=== PATIENT | female | born 1985 | race African-American/Black ===

== ENCOUNTER 2017-12-04 09:37 | Emergency (ER) | payer OTHER, MEDICAID ==
[~2017-12-04] VITALS: Ht 162.6 cm; Wt 91.6 kg
[~2017-12-04 09:37] MED LIST: BIRTH CONTROL; KEFLEX500 MG PO; NORCO 5-325 TA1 EACH PO
[2017-12-04] MEDS ORDERED: TRIAMCINOLONE A80 G2 TOP (09:46)
[2017-12-04] MEDS ORDERED: KEFLEX500 M1 PO (10:18)
[2017-12-04 10:39] VITALS: BP 155/99
== END 2017-12-04 10:40 | disposition home or self-care (01) ==
LOC: M.ERS 09:37
DX: L02.01 Cutaneous abscess of face (principal); Z91.040 Latex allergy status

== ENCOUNTER 2018-11-21 09:07 | Emergency (ER) | payer BC, OTHER, MEDICAID ==
[~2018-11-21] VITALS: Ht 162.6 cm; Wt 90.7 kg
[~2018-11-21 09:07] MED LIST changes: +KEFLEX500 M1 PO; +TRIAMCINOLONE A80 G2 TOP
[2018-11-21] MEDS ORDERED: IBUPROFEN 800800 MG PO (09:35)
[2018-11-21] MEDS ORDERED: Magic Mouthwash SW&SWALLOW (09:35)
== END 2018-11-21 09:56 | disposition home or self-care (01) ==
LOC: M.ERS 09:07
DX: J02.8 Acute pharyngitis due to other specified organisms (principal); B97.89 Other viral agents as the cause of diseases classified elsewhere; Z91.040 Latex allergy status

== ENCOUNTER 2019-01-04 08:18 | Emergency (ER) | payer BC, OTHER, MEDICAID ==
[~2019-01-04] VITALS: Ht 165.1 cm; Wt 90.7 kg
[~2019-01-04 08:18] MED LIST changes: +IBUPROFEN 800800 MG PO; +Magic Mouthwash SW&SWALLOW
[2019-01-04] MEDS ORDERED: TORADOL 10 MG T10 MG PO (08:42)
[2019-01-04 09:02] VITALS: BP 141/73
== END 2019-01-04 09:03 | disposition home or self-care (01) ==
LOC: M.ERS 08:18
DX: S86.812A Strain of other muscle(s) and tendon(s) at lower leg level, left leg, initial encounter (principal); Z91.040 Latex allergy status; X50.1XXA Overexertion from prolonged static or awkward postures, initial encounter; Y92.89 Other specified places as the place of occurrence of the external cause; Y93.89 Activity, other specified; Y99.8 Other external cause status

== ENCOUNTER 2019-07-20 10:46 | Emergency (ER) | payer BC, OTHER, MEDICAID ==
[~2019-07-20] VITALS: Ht 162.6 cm; Wt 90.7 kg
[~2019-07-20 10:46] MED LIST changes: +TORADOL 10 MG T10 MG PO
[2019-07-20 11:03] VITALS: BP 161/123
[2019-07-20] MEDS ORDERED: HEATHER0.35 MG PO (11:05)
[2019-07-20 11:30] LABS: INFLUENZA A ANTIGEN Negative (Negative)
[2019-07-20] MEDS ORDERED: TYLENOL WITH CO1 TA1 PO (12:23)
[2019-07-20] MEDS ORDERED: NASACORT10.8 ML NARES (12:23)
[2019-07-20] MEDS ORDERED: LORATIDINE 10 M10 M1 PO (12:23)
[2019-07-20] MEDS ORDERED: MEDROLDOSEPACK PO (12:23)
== END 2019-07-20 12:30 | disposition home or self-care (01) ==
LOC: M.ERS 10:46
PROVIDERS: Emergency Medicine
DX: J10.1 Influenza due to other identified influenza virus with other respiratory manifestations (principal); Z91.040 Latex allergy status

== ENCOUNTER 2020-03-01 06:12 | Emergency (ER) | payer BC ==
[~2020-03-01] VITALS: Ht 162.6 cm; Wt 93.9 kg
[~2020-03-01 06:12] MED LIST changes: +HEATHER0.35 MG PO; +LORATIDINE 10 M10 M1 PO; +MEDROLDOSEPACK PO; +NASACORT10.8 ML NARES; +TYLENOL WITH CO1 TA1 PO
[2020-03-01 06:51] VITALS: BP 154/91
== END 2020-03-01 06:51 | disposition home or self-care (01) ==
LOC: M.ERS 06:12
DX: H61.21 Impacted cerumen, right ear (principal); Z91.040 Latex allergy status

== ENCOUNTER 2021-01-30 11:38 | Emergency (ER) | payer BC ==
[~2021-01-30] VITALS: Ht 167.6 cm; Wt 91.2 kg
[2021-01-30 11:54] VITALS: BP 159/107
[2021-01-30] MEDS ORDERED: BIRTH CONTROL (11:56)
== END 2021-01-30 15:49 | disposition home or self-care (01) ==
LOC: M.ERS 11:38
DX: H61.21 Impacted cerumen, right ear (principal); Z91.040 Latex allergy status